=== PATIENT | male | born 2005 | race Caucasian/White ===

== ENCOUNTER 2025-05-21 11:16 | Emergency (ER) | payer OTHER, SELFPAY ==
[2025-05-21 11:30] VITALS: BP 132/83; PULSE 70; RESP 18; TEMP 36.3; O2SAT 100
--- NOTE | 2025-05-21 11:42 | ED.BACK ---
HPI - Back Pain/Injury General Chief Complaint: Back Pain/Injury Stated Complaint: Back Pain Time Seen by Provider: 05/21/25 11:17 Source: patient and family (mother) Mode of arrival: ambulatory History of Present Illness HPI Narrative: 20-year-old male presents to [facility] accompanied by his mother for complaints of right-sided back pain since yesterday. Patient reports the pain started after he moved a heavy table and then bent over in his room and the pain became worse. Patient reports his pain is worse with movement, bending and lifting. Patient reports that he has had similar pain in the past. Patient has not tried taking any [id number] medication for his symptoms. Patient denies numbness, tingling, bowel or bladder problems. MD elicited complaint: back pain Pertinent past history: prior back pain Onset (ago): day(s) (1) Similar Symptoms Previously: Yes Radiation: right upper leg Exacerbating factors: movement and lifting Work related injury: No Related Data Allergies Allergy/AdvReac Type Severity Reaction Status Date / Time No Known Allergies Allergy Verified 05/21/25 11:20 Review of Systems Constitutional: Constitutional: Denies chills, Denies fatigue, Denies fever(s) and Denies weakness ENT: Denies vertigo, Denies dizziness and Denies epistaxis Respiratory: Respiratory: Denies cough, Denies dyspnea and Denies wheezing Gastrointestinal: Gastrointestinal: Denies diarrhea, Denies nausea and Denies vomiting Musculoskeletal: Comments: Right lower back pain Integumentary/Breasts: Skin/Breast: Denies erythema and Denies rash Neurologic: Denies dizziness, Denies syncope and Denies headache(s) PMFSH Comments At time of signature, I agree with nursing past medical, surgical, social and family history. There is no relevant family history pertinent to the presenting complaint. Exam Const: General: healthy appearing and no acute distress Nutritional Appearance: well nourished Orientation/consciousness: patient oriented x3 Limitations: no limitations HENMT: Head: normal to inspection Eyes: Conjunctivae: conjunctivae normal Neck: Neck: normal visual inspection Resp: Effort & Inspection: normal respiratory effort and not labored Auscultation: clear to auscultation bilaterally, no crackles, no rales, no rhonchi and no wheezes Cardio: Rate: regular rate Rhythm: regular rhythm Heart sounds: no murmurs Back/Spine/Pelvis: Back: no CVA tenderness Other: Pain to right lower back upon palpation. There is no spinal tenderness noted. Pain is worse with ambulation and bending. There is no bruising, erythema, warmth or wounds noted Skin: General skin exam: normal color Rashes: no rashes Wounds: no wounds Neuro: General: patient oriented x3 and moves all extremities Speech: normal speech Gait exam (Neuro): Normal gait present Extrem: General: normal to inspection Psych: Mental Status: mental status grossly normal Affect: normal affect Attitude: cooperative Course Course Level of Care: Express Care Visit Vital Signs Vital signs: Vital Signs Temperature 36.3 C L 05/21/25 11:30 Pulse Rate 70 05/21/25 11:30 Respiratory Rate 18 05/21/25 11:30 Blood Pressure 132/83 05/21/25 11:30 Pulse Oximetry 100 05/21/25 11:30 Oxygen Delivery Room Air 05/21/25 11:30 Temperature 36.3 C L 05/21/25 11:30 Pulse Rate 70 05/21/25 11:30 Respiratory Rate 18 05/21/25 11:30 Blood Pressure 132/83 05/21/25 11:30 Pulse Oximetry 100 05/21/25 11:30 Oxygen Delivery Room Air 05/21/25 11:30 MDM - Back Pain/Injury MDM Narrative Medical decision making narrative: Rice therapy discussed with patient. Instructed patient not to take additional NSAIDs while taking meloxicam. Instructed patient not to drive, drink alcohol or work while taking muscle relaxers as medication may make him drowsy. Differential Diagnosis Differential diagnosis: Likely sciatica and other (Strain, sprain) Critical Care Time Critical Care Time Critical Care Time: No Discharge Plan Discharge Clinical Impression: Back pain Qualifiers: Back pain location: low back pain Chronicity: acute Back pain laterality: right Sciatica presence: without sciatica Qualified Code(s): M54.50 - Low back pain, unspecified Patient Disposition: Home Condition: Stable Instructions: Acute Low Back Pain (ED) Additional Instructions: Do not take other NSAIDs while taking meloxicam You may alternate Tylenol with meloxicam as needed Apply cool/warm compresses to area pain if needed Do not drive, drink alcohol or work while taking muscle relaxers medication may make you drowsy Follow-up with primary care provider if symptoms not improved Proceed to the emergency room symptoms worsen Patient Language: Hebrew Prescriptions: New meloxicam 7.5 mg tablet 7.5 mg PO DAILY Qty: 7 0RF methocarbamol 500 mg tablet 500 mg PO HS PRN (Reason: pain) 7 Days Qty: 7 0RF Follow-up/Referrals: Nathanael,Jose Miguel Hanna [Other] Stand Alone Forms: Work/School Release IP Time of Disposition: 12:02
== END 2025-05-21 11:50 | disposition home or self-care (01) ==
PROVIDERS: Emergency Provider Nurse Practitioner Family
DX: M54.50 Low back pain, unspecified (principal)
CPT/HCPCS: 99203; G0463